=== PATIENT | female | born 1995 | race Caucasian/White ===

== ENCOUNTER 2018-11-28 20:23 | Emergency (ER) | payer MEDICAID ==
[~2018-11-28] VITALS: Ht 160 cm; Wt 59.0 kg
[~2018-11-28 20:23] MED LIST: AZITHROMYCIN250 MG ORAL; IBUPROFEN400 MG ORAL; IBUPROFEN600 MG ORAL; NKM; TRAMADOL HCL50 MG ORAL; ZOFRAN ODT4 MG ORAL
[2018-11-28] MEDS ORDERED: AMOXICILLIN500 MG ORAL (20:52)
[2018-11-28 20:55] VITALS: BP 108/74
--- NOTE | 2018-11-28 21:07 | NUR ---
ED Nurse Note: Patient walked in to ER c/o sore throat x2 days. AAO x4, VSS at this time.
--- NOTE | 2018-11-28 21:08 | NUR ---
ED Nurse Note: Pt cleared by health care Provider for discharge. DC instructions/prescription was given and explained to pt and verbalized understanding of teachings. All medical deviecs such as ID band removed. Pt is AAO x4, ambulatory and left with all personal belongings.
[2018-11-28 21:10] VITALS: BP 108/74
--- NOTE | 2018-11-28 21:29 | Emergency Room Report ---
History of Present Illness General Chief Complaint: Sore Throat Source: Patient Present Illness HPI Patient presents with complaints of sore throat ongoing for the past day Patient also complaining of pressure behind both ears runny nose Denies any chest pain or shortness of breath denies any posterior neck pain Denies any vomiting or diarrhea patient complains of low-grade fever Denies any other rash Allergies: Coded Allergies: No Known Allergies (Unverified , 08/09/13) Patient History Past Medical History: see triage record Pertinent Family History: none Last Menstrual Period: 11/14/18 Now: No : 0 Para: 0 Reviewed Nursing Documentation: PMH: Agreed; PSxH: Agreed Nursing Documentation-PMH Past Medical History: No Stated History Review of Systems All Other Systems: negative except mentioned in HPI Physical Exam Vital Signs Date Time Temp Pulse Resp B/P (MAP) Pulse Ox O2 Delivery O2 Flow Rate FiO2 11/28/18 20:38 99.0 91 17 108/74 (85) 96 Room Air Sp02 EP Interpretation: reviewed, normal General Appearance: well appearing, no apparent distress Head: normocephalic, atraumatic Eyes: bilateral eye PERRL, bilateral eye EOMI ENT: hearing grossly normal, no angioedema, normal voice, pharyngeal erythema Neck: supple Respiratory: lungs clear, no retraction Cardiovascular #1: regular rate, rhythm Gastrointestinal: non tender, soft Musculoskeletal: normal inspection Neurologic: alert, oriented x3, responsive Skin: normal color, no rash Lymphatic: no adenopathy Medical Decision Making Diagnostic Impression: Primary Impression: pharyngitis ER Course Multiple differentials including but not limited to pharyngitis, retropharyngeal abscess, peritonsillar abscess entertained Patient does not appear septic or toxic Has clinical findings consistent with pharyngitis and will have initial conservative outpatient trial Last Vital Signs Date Time Temp Pulse Resp B/P (MAP) Pulse Ox O2 Delivery O2 Flow Rate FiO2 11/28/18 20:55 99.0 17 108/74 96 Room Air 11/28/18 20:38 91 Status: unchanged Disposition: HOME, SELF-CARE Condition: Stable Scripts Amoxicillin* (AMOXIL*) 500 Mg Capsule 500 MG ORAL THREE TIMES A DAY, #15 CAP Prov: Ethel Orellana DO 11/28/18 Referrals: NOT CHOSEN IPA/MD,REFERRING (PCP) Patient Instructions: Pharyngitis, [id number] Additional Instructions: Patient is provided with the discharge instructions notified to follow up with primary doctor in the next 2-3 days otherwise return to the er with any worsening symptoms. Please note that this report is being documented using [employer] technology. This can lead to erroneous entry secondary to incorrect interpretation by the dictating instrument. Ethel Orellana DO Nov 28, 2018 21:29
== END 2018-11-28 21:10 | disposition home or self-care (01) ==
LOC: EMR 21:00
DX: J02.9 Acute pharyngitis, unspecified (principal)
CPT/HCPCS: 99282